=== PATIENT | female | born 1990 | race African-American/Black ===

== ENCOUNTER 2019-05-08 17:20 | Emergency (ER) | payer MEDICAID, OTHER ==
[~2019-05-08] VITALS: Ht 167.6 cm; Wt 86.2 kg
[~2019-05-08 17:20] MED LIST: ANTI-ITCH28 GM TOPIC; BENADRYL25 M3 PO; KEFLEX500 MG ORAL; NKM
--- NOTE | 2019-05-08 17:36 | NUR ---
ED Nurse Note:pt. came with vaginal discharge and pain
--- NOTE | 2019-05-08 17:47 | NUR ---
ED Nurse Note:urine sent to labs
[2019-05-08 18:06] LABS: APPEARANCE,URINE CLEAR; BILIRUBIN, URINE NEGATIVE (NEGATIVE); COLOR,URINE PALE YELLOW; GLUCOSE, URINE (UA) NEGATIVE (NEGATIVE); KETONES,URINE NEGATIVE (NEGATIVE); LEUKOCYTE ESTERASE ,URINE NEGATIVE (NEGATIVE); NITRITE,URINE NEGATIVE (NEGATIVE); PH,URINE 7 (4.5-8.0); PROTEIN,URINE NEGATIVE (NEGATIVE); UROBILINOGEN,URINE 1 MG/DL (0.0-1.0)
[2019-05-08 18:10] VITALS: BP 127/84
--- NOTE | 2019-05-08 18:30 | Emergency Room Report ---
History of Present Illness General Chief Complaint: Vaginal Source: Patient Present Illness HPI 28 YO female presents to the ED c/o malodorous vaginal d/c x 1 week. She reports recent unprotected intercourse with the same partner and states she was recently tested for STI and was negative. PT. reports 4/10 in severity intermittent cramps, but denies pain at the moment. Pt. Denies abdominal tenderness. She denies hematuria, urinary frequency, urgency or dysuria. Pt. denies itching or rashes. Pt reports that she has had BV frequently in the past but this d/c is different, and is dark brown in color similar to the end of her period. Pt. report she finished her period 2 weeks ago. She denies taking BC. Pt. denies N/V/F/C. No other aggravating or relieving factors at this time. Allergies: Coded Allergies: No Known Allergies (Unverified , 08/13/13) Patient History Past Medical History: see triage record Past Surgical History: none Pertinent Family History: none Last Menstrual Period: 04/2019 Now: No Reviewed Nursing Documentation: PMH: Agreed; PSxH: Agreed Nursing Documentation-PMH Past Medical History: No Stated History Review of Systems All Other Systems: negative except mentioned in HPI Physical Exam Vital Signs Date Time Temp Pulse Resp B/P (MAP) Pulse Ox O2 Delivery O2 Flow Rate FiO2 05/08/19 17:26 98.2 82 16 127/84 (98) 97 Room Air Sp02 EP Interpretation: reviewed, normal General Appearance: no apparent distress, alert, GCS 15, non-toxic Head: normocephalic, atraumatic Eyes: bilateral eye normal inspection, bilateral eye PERRL ENT: hearing grossly normal, normal voice Neck: full range of motion Respiratory: lungs clear, normal breath sounds, speaking full sentences Cardiovascular #1: regular rate, rhythm Gastrointestinal: normal bowel sounds, non tender, soft, non-distended, no guarding Rectal: deferred Genitourinary: normal inspection, no CVA tenderness, other - brownish malodorus vaginal d/c , no CMT. Musculoskeletal: gait/station normal, normal range of motion, non-tender Neurologic: alert, oriented x3, responsive, motor strength/tone normal, sensory intact, speech normal, grossly normal Psychiatric: judgement/insight normal Skin: no rash Lymphatic: no adenopathy Medical Decision Making PA Attestation Dr. Johnson Is my supervising Physician whom patient management has been discussed with. Diagnostic Impression: Primary Impression: Bacterial vaginosis Additional Impression: UTI (urinary tract infection) Qualified Codes: N30.00 - Acute cystitis without hematuria ER Course 28 YO female presents to the ED c/o malodorous vaginal d/c x 1 week. She reports recent unprotected intercourse with the same partner and states she was recently tested for STI and was negative. PT. reports 4/10 in severity intermittent cramps, but denies pain at the moment. Pt. Denies abdominal tenderness. She denies hematuria, urinary frequency, urgency or dysuria. Pt. denies itching or rashes. Pt reports that she has had BV frequently in the past but this d/c is different, and is dark brown in color similar to the end of her period. Pt. report she finished her period 2 weeks ago. She denies taking BC. Pt. denies N/V/F/C. No other aggravating or relieving factors at this time. Ddx considered but are not limited to UTi , Pyelo, STI, Stone, Cystitis, vaginal laceration, vaginitis. Vital signs: are WNL, pt. is afebrile H& PE are most consistent with: Vaginitis ORDERS: - UA labs are attached - bacteria indicate UTI - Wet [place] : rare clue cells c/w BV -Urine Hcg: Negative ED INTERVENTIONS: -none required at this time. DISCHARGE: At this time pt. is stable for d/c to home. Will provide printed patient care instructions, and any necessary prescriptions. Care plan and follow up instructions have been discussed with the patient prior to discharge. discussed with the patient prior to discharge. Labs Test 05/08/19 17:40 Urine Color Pale yellow Urine Appearance Clear Urine pH 7 (4.5-8.0) Urine Specific [place] 1.010 (1.005-1.035) Urine Protein Negative (NEGATIVE) Urine Glucose (UA) Negative (NEGATIVE) Urine Ketones Negative (NEGATIVE) Urine Blood 5+ (NEGATIVE) Urine Nitrite Negative (NEGATIVE) Urine Bilirubin Negative (NEGATIVE) Urine Urobilinogen 1 MG/DL (0.0-1.0) Urine Leukocyte Esterase Negative (NEGATIVE) Urine RBC 2-4 /HPF (0 - 2) Urine WBC 0-2 /HPF (0 - 2) Urine Squamous Epithelial Cells Moderate /LPF (NONE/OCC) Urine Bacteria Many /HPF (NONE) Urine HCG, Qualitative Negative (NEGATIVE) Last Vital Signs Date Time Temp Pulse Resp B/P (MAP) Pulse Ox O2 Delivery O2 Flow Rate FiO2 05/08/19 18:10 98.2 71 16 127/84 97 Room Air Disposition: HOME, SELF-CARE Condition: Stable Scripts Metronidazole* (FLAGYL*) 500 Mg Tablet 500 MG ORAL BID for 7 Days, #14 TAB Prov: Celi Shannon 05/08/19 Nitrofurantoin Monohyd/M-Cryst* (MACROBID 100 MG*) 100 Mg Capsule 100 MG ORAL EVERY 12 HOURS for 5 Days, #10 CAP Prov: Celi Shannon 05/08/19 Referrals: NOT CHOSEN IPA/MD,REFERRING (PCP) Patient Instructions: Bacterial Vaginosis Additional Instructions: Take medications as directed. Follow up with a Primary Care Provider in 3-5 days, even if your symptoms have resolved. --Please review list of primary care clinics, if you do not already have a primary care provider Return sooner to ED if new symptoms occur, or current symptoms become worse. - Please note that this Emergency Department Report was dictated using [employer] developer technology software, occasionally this can lead to erroneous entry secondary to interpretation by the dictation equipment. Celi Shannon May 08, 2019 18:30
--- NOTE | 2019-05-08 19:04 | NUR ---
HAND-OFF: Report given to Millicent.
[2019-05-08] MEDS ORDERED: METRONIDAZOLE500 MG ORAL (19:11)
[2019-05-08] MEDS ORDERED: NITROFURANTOIN100 M2 ORAL (19:11)
--- NOTE | 2019-05-08 19:15 | NUR ---
ED Nurse Note: Handover from RN
--- NOTE | 2019-05-08 19:23 | NUR ---
ER DISCHARGE NOTE: Patient is cleared to be discharged per ERMD, pt is aox4, on room air, with stable vital signs. pt was given dc and prescription instructions, pt was able to verbalize understanding, pt id band removed. pt is able to ambulate with steady gait. pt took all belongings.
[2019-05-08 19:24] VITALS: BP 111/70
== END 2019-05-08 19:25 | disposition home or self-care (01) ==
LOC: EMR 17:51
DX: N76.0 Acute vaginitis (principal); N39.0 Urinary tract infection, site not specified
CPT/HCPCS: 81003; 81025; 87086; 87210; Z7502; 99283